=== PATIENT | male | born 1980 | race Caucasian/White ===

== ENCOUNTER 2020-03-26 15:56 | Outpatient (CLI) | payer OTHER, SELFPAY ==
--- NOTE | ~2020-03-26 | XR_ITS ---
XR knee RT min 4V, XR knee LT min 4V 03/26/2020 16:51 Indication: Chronic bilateral knee pain Procedure: 4 views each knee Comparison: No prior studies for comparison. Findings: There is mild patellofemoral compartment osteoarthritis. No fracture, subluxation or disloc ation. No significant joint effusion. There is a loose body medial to the left joint space, likely re lated to remote trauma or degenerative change. Impression: 1: Mild osteoarthritis of the patellofemoral joints with loose body medial to the left knee. Reviewed, dictated and finalized at location A. Impression: 1: Mild osteoarthritis of the patellofemoral joints with loose body medial to t he left knee. Impression: 1: Mild osteoarthritis of the patellofemoral joints with loose body medial to t he left knee.
[2020-03-26 16:12] LABS: Basophils Percent Auto 1.1 % (0.0-1.0); Eosinophils Absolute Auto 0.24 K/mm3 (0.02-0.50); Eosinophils Percent Auto 2.6 % (1.0-6.0); Hematocrit 40.6 % (40.0-54.0); Hemoglobin 14.5 g/dL (14.0-18.0); Immature Granulocyte Absolute 0.02 K/mm3 (0.00-0.00); Immature Granulocyte Percent A 0.2 % (0.0-0.0); Lymphocytes Absolute Auto 2.67 K/mm3 (1.10-4.50); Lymphocytes Percent Auto 29.4 % (18.0-42.0); Mean Corpuscular HGB Conc 35.7 g/dL (32.0-36.0); Mean Corpuscular Hemoglobin 32.3 pg (27.0-31.0); Mean Corpuscular Volume 90.4 fL (78.0-102.0); Mean Platelet Volume 11.4 fl (8.7-11.0); Monocytes Percent Auto 8.8 % (2.0-11.0); Neutrophils Absolute Auto 5.3 K/mm3 (1.7-7.2); Neutrophils Percent Auto 57.9 % (50.0-70.0); Platelet Count Result 205 K/mm3 (150-420); Red Blood Count 4.49 M/mm3 (4.70-6.10); Red Cell Distribution Width 12.8 % (11.6-14.4); White Blood Count 9.1 K/mm3 (4.8-10.8)
[2020-03-26 16:52] LABS: Alanine Aminotransferase 23 U/L (16-63); Albumin Level 4.2 g/dL (3.4-5.0); Alkaline Phosphatase 81 U/L (46-116); Aspartate Amino Transferase 20 U/L (15-37); Bilirubin,Total 0.4 mg/dL (0.00-1.00); Blood Urea Nitrogen 14 mg/dL (7-18); CRP 0.5 mg/dL (0.0-0.9); Calcium 9.7 mg/dL (8.5-10.1); Carbon Dioxide 32 mmol/L (21-32); Chloride 102 mmol/L (98-108); Estimated Glomerular Filt Rate > 60; Glucose 91 mg/dL (70-99); Osmolality Calculated 292 mOsm/kg (285-295); Sodium 141 mmol/L (136-145); Total Protein 7.2 g/dL (6.4-8.2)
[2020-03-28 21:45] LABS: Anti Cyclic Citrullinated Pept <16 Units (<20)
== END 2020-03-26 15:57 | disposition home or self-care (01) ==
LOC: CHSLAB 16:01
PROVIDERS: PCP Internal Medicine; Visit Provider Internal Medicine
DX: M25.562 Pain in left knee (principal); M25.561 Pain in right knee; M25.461 Effusion, right knee
CPT/HCPCS: 36415; 73564; 80053; 84550; 85025; 86140; 86200

== ENCOUNTER 2020-04-14 06:44 | Outpatient (CLI) | payer OTHER, SELFPAY ==
--- NOTE | ~2020-04-14 | MR_ITS ---
EXAMINATION: MR knee RT wo con DATE: 04/14/2020 07:31 INDICATION: Right knee pain. TECHNIQUE: Magnetic resonance imaging (MRI) of the right knee was performed without intravenous contr ast. Sequences included axial PD-weighted FS FSE, coronal PD-weighted FSE and PD-weighted FS FSE, sag ittal PD-weighted FSE, and sagittal T2-weighted FS FSE. COMPARISON: Right knee radiographs 03/26/2020 FINDINGS: Medial compartment: There is a complex tear of body of medial meniscus. There is a 4.9 x 3.2 x 2.0 cm multiloculated cyst adjacent to the body of the medial meniscus. There is cartilage surface irregularity of tibial condy le. Femoral cartilage is normal. Lateral compartment: Lateral meniscus is normal. There is cartilage surface irregularity of femoral condyle and tibial con dyle. Patellofemoral compartment: There is cartilage surface irregularity of patellar lateral facet. Trochlear cartilage is normal. Ligaments and tendons: The anterior and posterior cruciate ligaments are normal. Medial collateral ligament and lateral denice ateral ligament complex are intact. The patellar tendon is normal. Fluid: There is no knee joint effusion. There is trace fluid in a Falk's cyst. IMPRESSION: 1. Mild tricompartmental chondrosis. 2. Complex tear of medial meniscus with large paralabral cyst. Reviewed, dictated and finalized at location A.
== END 2020-04-14 06:45 | disposition home or self-care (01) ==
LOC: CHSIMG 06:45
PROVIDERS: PCP Internal Medicine; Visit Provider Internal Medicine
DX: M25.561 Pain in right knee (principal)
CPT/HCPCS: 73721

== ENCOUNTER 2020-08-04 00:53 | Outpatient (CLI) | payer OTHER, SELFPAY ==
[2020-08-04 21:18] LABS: SARS-CoV-2 RNA PCR Negative
== END 2020-08-04 00:54 | disposition home or self-care (01) ==
LOC: ANHCOVIDDT 00:53
PROVIDERS: PCP Internal Medicine; Visit Provider Orthopaedic Surgery
DX: Z01.812 Encounter for preprocedural laboratory examination (principal); Z20.828 Contact with and (suspected) exposure to other viral communicable diseases
CPT/HCPCS: 87635; C9803; U0003

== ENCOUNTER 2020-08-07 00:59 | Day surgery (SDC) | payer OTHER, SELFPAY ==
--- NOTE | 2020-08-02 16:04 | PM.IMHP ---
H&P: HPI History of Present Illness Chief complaint: Right Knee Medial Meniscus Tear w/ Paralabral Cyst Narrative: Knee Pain Pt presents with Right knee pain. He has had pain since January. MRI 04/16 showed tear of medial meniscus with large paralabral cyst. He experiences pain with ROM. His knee is also tender to touch and is waking him from sleep, at night. He would like to discuss surgical intervention. 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 History of prior knee injury: Yes (played baseball) Review of Systems Review of Systems: All systems reviewed & are unremarkable except as noted in HPI and below Constitutional: Constitutional: Denies headache(s) and Denies weakness Eyes: Eyes: Denies blurry vision, Denies change in vision and Denies loss of vision ENT: Denies dizziness, Denies dry mouth, Denies headache(s) and Denies nasal congestion Cardiovascular: Cardiovascular: Denies chest pain, Denies syncope, Denies leg edema and Denies dyspnea on exertion Respiratory: Respiratory: Denies cough and Denies dyspnea on exertion Gastrointestinal: Gastrointestinal: Denies abdominal pain, Denies constipation and Denies diarrhea Genitourinary: Genitourinary: Denies urinary frequency Musculoskeletal: Musculoskeletal: Reports as per HPI and Denies numbness Integumentary/Breasts: Skin/Breast: Reports system reviewed and no additional complaints, except as docu Neurologic: Denies dizziness, Denies syncope, Denies headache(s), Denies loss of vision, Denies numbness and Denies weakness Psychiatric: Psychiatric: Reports no additional psychiatric complaints Endocrine: Endocrine: Reports no additional endocrine complaints Hematologic/Lymphatic: Hematologic/Lymphatic: Reports no additional hematologic/lymphatic complaints [facility] Past Medical History Medical History Seasonal allergies Family History Family History Other Arthritis Hypertension Social History Social History Smoking status: Current every day smoker Meds Home Medications and Allergies Home Medications Medication Instructions Recorded Confirmed Type chlorhexidine gluconate 4 % 1 applic TOPICAL ONCE #237 ml 07/10/20 Rx topical liquid Allergies Allergy/AdvReac Type Severity Reaction Status Date / Time amoxicillin Allergy Intermediate Unknown Verified 07/02/20 08:48 Penicillins Allergy Intermediate Unknown Verified 07/02/20 08:48 Exam Narrative: Exam Narrative: Extrem Right lower extremity: normal to inspection, full ROM, normal capillary refill, cyanosis and knee Details: abnormal to inspection (medial mass is non tender), tenderness Location: medial joint line and lateral joint line, swelling, abnormal ROM Details: pain with active ROM during and pain with passive ROM during, knee ligament exam normal, Josiah's Test Details: positive medially and laterally and positive medially and crepitus; Negative for abrasion, laceration and ecchymosis Left lower extremity: normal to inspection, normal capillary refill, edema, knee Details: normal to inspection and normal ROM and foot Details: normal capillary refill, normal to inspection, vascular exam Details: dorsalis pedis pulse present, posterior tibial pulse present and normal capillary refill and motor-sensory exam light-touch normal Assessment and Plan Additional Plan 40 YO MALE RIGHT MEDIAL MENISCUS TEAR
[2020-08-03 19:07] VITALS: BMI 35.9
--- NOTE | 2020-08-06 12:08 | WPDANESEPPF ---
Anes - Initial Pre Proc Eval Procedure: Operation Date: 08/07/20 09:00 Proposed Procedures p Right Knee Arthroscopy, Possible Excision Of Paralabral Cyst, Proceed As Indicated - Raymond Blair MD Date/Time: 08/06/20 12:08 Surgeon: Raymond Blair MD Pre Op Diagnosis: Right Knee Medial Meniscus Tear w/ Paralabral Cyst Patient Data Age: 40 Gender: M Height: 1.78 m Weight: 113.4 kg Allergies Allergy/AdvReac Type Severity Reaction Status Date / Time amoxicillin Allergy Intermediate Rash Verified 08/03/20 18:59 Penicillins Allergy Intermediate Unknown Verified 08/03/20 18:59 Home Medications Medication Instructions Recorded Confirmed Type chlorhexidine gluconate 4 % 1 applic TOPICAL ONCE #237 ml 07/10/20 Rx topical liquid Patient hx anesthesia problems: none Family hx anesthesia problems: none PMFSH Past Medical History Medical History (Updated 08/06/20 @ 12:09 by Tito Hurt MD) Obesity Seasonal allergies Tobacco abuse Family History Family History Other Arthritis Hypertension Social History Social History Smoking packs per day: 0.5 Smoking cigarettes per day: 10.0 Years smoked: 15 Smoking pack-years: 7.50 Smoking status: Current every day smoker Tobacco type: cigarettes Second hand tobacco smoke exposure: No Alcohol intake: current Alcohol use details: very rarely Substance use: never Living arrangements: with family Spiritual care concerns: No Anes - Eval Final PreProcedure Day of Procedure 08/06/20 12:08 Patient weight: obese Heart: regular rate and rhythm Lungs: clear to auscultation and normal air movement Airway: Mallampati scale class II Neurological: alert and oriented Last oral intake: >/= 8 hours ASA classification: II Emergent: no Anesthetic plan: proceed Anesthesia type and monitoring: general LMA Informed Consent: The patient's anesthetic plan and its attendant risks and benefits were discussed with the patient/family/POA. Questions were solicited and answers provided to the satisfaction of the patient/family/POA.
[2020-08-07] VITALS (9 sets, daily range): BP systolic 116–143; BP diastolic 73–97; PULSE 55–65; RESP 15–20; TEMP 36.5–36.6; O2SAT 98–100
--- NOTE | 2020-08-07 07:19 | WPDHPUPDATE1 ---
History and Physical Update Update Date/Time: 08/07/20 07:19 History and Physical has been reviewed, including an updated exam of the patient. There are NO changes in the patient's condition. Risks, benefits, and alternatives have been discussed and questions answered. Patient agrees to proceed with procedure.
[2020-08-07] MEDS: CELECOXIB 200 MG CAPSULE PO (08:08)
[2020-08-07] MEDS: ACETAMINOPHEN 500 MG TABLET 1000 MG PO (08:09)
[2020-08-07] MEDS: LACTATED RINGERS 1,000 ML 30 ML IV CONT ×2 (08:13→10:11)
[2020-08-07] MEDS: ceFAZolin 2 GM/D5W 50 ML 2 GM/50 ML BAG IVPB (08:58)
[2020-08-07] MEDS: BUPIVACAINE HCL 0.5% PF 30 ML VIAL INFILTRATE (09:18)
--- NOTE | 2020-08-07 10:14 | PM.PROC ---
Procedure Note - Detailed Date of procedure: 08/07/20 Pre-op diagnosis: Right Knee Medial Meniscus Tear w/ Paralabral Cyst Post-op diagnosis: same Procedure performed: RIGHT KNEE SCOPE WITH PARTIAL MEDIAL MENISCECTOMY AND MAJOR SYNEVECTOMY Description of procedure: PATIENT WAS TAKEN TO THE OR. THE RIGHT LEG WAS PREPPED AND DRAPED STERILE. TROCARS WERE PLACED IN THE USUAL FASHION. CAMERA WAS INTRODUCED. THERE WAS CHONDROMALACIA TO THE PATELLA FEMORAL JOINT. THERE WAS SOME SYNOVITIS IN THE MEDIAL COMPARTMENT. THE MEDIAL COMPARTMENT SHOWED CHONDROMALACIA TO THE MED FEMORAL CONDYLE. A SHAVER WAS USED TO PREFORM A CHONDROPLASTY. THERE WAS A COMPLEX MEDIAL MENISCUS TEAR. THE TEAR EXTENDED FROM THE MENISCAL ROOT TO THE POSTERIOR HORN MAIN BODY. THE TEAR WAS RESECTED WITH A BITER AND A SHAVER DOWN TO A SMOOTH BASE. ABOUT 15% OF THE MENISCUS WAS REMOVED. THERE APPEARED TO BE A RENT IN THE CAPSULE ADJACENT TO THE MENISCUS TEAR WHERE THE CYST WAS LOCATED. THE ACL WAS INTACT. THE LATERAL MENISCUS WAS NOT TORN. THE LATERAL COMPARTMENT HAD NO SIGNIFICANT CHONDROMALACIA. THE PATELLO FEMORAL JOINT UNDERWENT CHONDROPLASTY. THERE WAS GRADE 2 CHONDROMALACIA TO PART OF THE PATELLA. SYNOVECTOMY WAS PREFORMED IN THE SUPERIOR MEDIAL COMPARTMENT. THE PATELLA TRACKED NORMALLY WITHIN THE TROCHLEA. THE WOUNDS WERE APPROXIMATED WITH 4.0 NYLON. STERILE DRESSING WAS APPLIED. PATIENT WAS EXTUBATED. Anesthesia: GLMA Surgeon: Raymond Blair MD Estimated blood loss (mL): 5 Complications: No immediate complications Condition: stable Disposition: PACU
[2020-08-07] MEDS: fentaNYL CITRATE INJ (*CRX) 100 MCG/2 ML VIAL 25 MCG IV PUSH (10:45)
== END 2020-08-07 11:57 | disposition home or self-care (01) ==
PROVIDERS: PCP Internal Medicine; Visit Provider Orthopaedic Surgery
PROC: (CPT 29870; principal; 2020-08-07 09:00)
DX: M23.321 Other meniscus derangements, posterior horn of medial meniscus, right knee (principal); M94.261 Chondromalacia, right knee; M65.861 Other synovitis and tenosynovitis, right lower leg; M71.21 Synovial cyst of popliteal space [Baker], right knee; E66.9 Obesity, unspecified; Z68.37 Body mass index [BMI] 37.0-37.9, adult; F17.210 Nicotine dependence, cigarettes, uncomplicated
CPT/HCPCS: 29881; 29876; A9270; J0690; J2001; J2250; J2405; J2704; J3010; J7120

== ENCOUNTER 2020-08-09 11:27 | Emergency (ER) | payer OTHER, SELFPAY ==
[2020-08-09 11:27] VITALS: BP 138/78; PULSE 63; RESP 16; O2SAT 100
--- NOTE | 2020-08-09 11:27 | ED.SYNCOPE ---
HPI - Syncope General Chief Complaint: Syncope Stated Complaint: syncopal History of Present Illness HPI narrative: 40 yo male presents from home c/o syncopal episode. He was removing the bandages from a recent knee surgery for the first time when he began to feel strange and then passed out he was reportedly unconscious for about 4 minutes. He denies any symptoms at this time. Related Data Allergies Allergy/AdvReac Type Severity Reaction Status Date / Time amoxicillin Allergy Mild Rash Verified 08/10/20 11:25 Penicillins Allergy Mild Unknown Verified 08/10/20 11:25 Review of Systems Review of Systems: All systems reviewed & are unremarkable except as noted in HPI and below Constitutional: Constitutional: Denies chills and Denies fever(s) Eyes: Eyes: Denies change in vision Cardiovascular: Cardiovascular: Denies chest pain Respiratory: Respiratory: Denies dyspnea Gastrointestinal: Gastrointestinal: Denies abdominal pain, Denies diarrhea, Denies nausea and Denies vomiting Neurologic: Denies confusion, Reports syncope and Denies weakness PMF Past Medical History Medical History Encounter for postoperative care Obesity Seasonal allergies Tobacco abuse Family History Family History Other Arthritis Hypertension Social History Social History Smoking packs per day: 0.5 Smoking cigarettes per day: 10.0 Years smoked: 15 Smoking pack-years: 7.50 Tobacco type: cigarettes Second hand tobacco smoke exposure: No Alcohol intake: current Substance use: never Gender identity (if verbalized by the patient): Male Spiritual care concerns: No Exam Const: General: healthy appearing, no acute distress and alert Orientation/consciousness: patient oriented x3 HENMT: Head: normal to inspection Neck: Neck: normal visual inspection and no lymphadenopathy Chest: Chest palpation & inspection: no tenderness Resp: Effort & Inspection: normal respiratory effort Auscultation: clear to auscultation bilaterally, no rales, no rhonchi and no wheezes Cardio: Jugular venous distension: no JVD Rate: regular rate Rhythm: regular rhythm Heart sounds: no murmurs GI: Inspection: non-distended GI Palp: Yes Soft to palpation and No Tenderness to palpation present (GI) Skin: General skin exam: normal color Neuro: General: patient oriented x3 and moves all extremities Speech: normal speech Extrem: Other: Right knee wound dressing in place Psych: Appearance: well kempt Affect: normal affect Course Vital Signs Vital signs: Vital Signs Pulse Rate 63 08/09/20 11:27 Respiratory Rate 16 08/09/20 11:27 Blood Pressure 138/78 08/09/20 11:27 Pulse Oximetry 100 08/09/20 11:27 Pulse Rate 63 08/09/20 12:22 Respiratory Rate 16 08/09/20 11:27 Blood Pressure 121/80 08/09/20 12:22 Pulse Oximetry 100 08/09/20 11:27 MDM - Syncope MDM Narrative Medical decision making narrative: Clear history of vasovagal syncope. Returned to baseline prior to arrival. Differential Diagnosis Differential diagnosis: Likely vasovagal syncope Medical Records Attestation: I reviewed the patient's medical records. Lab Data Attestation: I reviewed the patient's lab results. Discharge Plan Discharge Clinical Impression: Vasovagal syncope Patient Disposition: Home, Self-Care Condition: Stable Instructions: Syncope (ED) Prescriptions: No Action hydrocodone-acetaminophen [Amigo] 5-325 mg tablet 1 tablet PO Q6H PRN (Reason: pain) Qty: 30 RF: 0 Follow-up/Referrals: Adrián Armenta MD [Primary Care Provider] -
[2020-08-09 11:34] VITALS: PULSE 67
--- NOTE | 2020-08-09 11:34 | ECG_ITS ---
Measurements Intervals [place] Rate: 66 P: 6 RI: 165 QRS: -14 QRSD: 92 T: 21 QT: 380 QTc: 399 Interpretive Statements SINUS RHYTHM BASELINE ARTIFACT- I, II, III, AVR, AVL, AVF NORMAL ECG Electronically Signed On 08-10-2020 9:21:06 CHROME TANNER by Caleb Blanco D.O.
[2020-08-09 12:19] VITALS: BP 111/63; PULSE 56
[2020-08-09 12:21] VITALS: BP 116/79; PULSE 62
[2020-08-09 12:22] VITALS: BP 121/80; PULSE 63
== END 2020-08-09 12:47 | disposition home or self-care (01) ==
PROVIDERS: Emergency Provider Emergency Medicine; PCP Internal Medicine
DX: R55 Syncope and collapse (principal); F17.210 Nicotine dependence, cigarettes, uncomplicated
CPT/HCPCS: 93005; 99283; J7030

== ENCOUNTER 2024-02-09 07:07 | Outpatient (CLI) | payer OTHER, SELFPAY ==
--- NOTE | ~2024-02-09 | US_ITS ---
Limited Abdominal Sonogram: Real-time sonographic imaging of the right upper quadrant was performed. Clinical History: Abnormal LFTs Findings: The liver appears echogenic, with no evidence of mass lesion or bile duct dilatation. Live r measures 18.2 cm in length. Main portal vein demonstrates normal direction of flow. The gallbladder is well distended, and appears normal with no evidence of gallstone or wall thickening. The common b ile duct measures 3 mm. The visualized pancreas, aorta, and IVC are unremarkable. Impression: Diffuse fatty infiltration of the liver, with associated mild hepatomegaly. Reviewed, dictated and finalized at location . Impression: Diffuse fatty infiltration of the liver, with associated mild hepatomegaly.
[2024-02-09 07:52] LABS: Hemoglobin A1C 5.5 % (<5.7)
[2024-02-09 08:17] LABS: Alanine Aminotransferase 25 U/L (16-63); Albumin Level 3.8 g/dL (3.4-5.0); Alkaline Phosphatase 84 U/L (46-116); Anion Gap 15 mmol/L (4-12); Aspartate Amino Transferase 21 U/L (15-37); Bilirubin,Total 0.2 mg/dL (0.00-1.00); Blood Urea Nitrogen 12 mg/dL (7-18); Calcium 8.3 mg/dL (8.5-10.1); Carbon Dioxide 22 mmol/L (21-32); Chloride 102 mmol/L (98-108); Estimated Glomerular Filt Rate > 60; Glucose 107 mg/dL (70-99); Osmolality Calculated 287 mOsm/kg (285-295); Potassium 3.8 mmol/L (3.5-5.1); Sodium 139 mmol/L (136-145); Total Protein 6.8 g/dL (6.4-8.2)
[2024-02-09 08:25] LABS: CRP < 0.5 mg/dL (0.0-0.9)
[2024-02-11 10:58] LABS: Hepatitis B Surface Antigen NON-REACTIVE (NON-REACTIVE)
[2024-02-11 11:34] LABS: Hepatitis A Antibody IgM NON-REACTIVE (NON-REACTIVE); Hepatitis B Core Antibody NON-REACTIVE (NON-REACTIVE); Hepatitis C Virus Antibody NON-REACTIVE (NON-REACTIVE)
== END 2024-02-09 07:08 | disposition home or self-care (01) ==
LOC: CHSIMG 07:11
PROVIDERS: PCP Internal Medicine; Visit Provider Internal Medicine
DX: R94.5 Abnormal results of liver function studies (principal); K76.0 Fatty (change of) liver, not elsewhere classified
CPT/HCPCS: 36415; 76705; 80053; 80074; 83036; 86038; 86039; 86140